=== PATIENT | male | born 1995 | race Hispanic/Latino ===

== ENCOUNTER 2018-07-18 03:05 | Emergency (ER) | payer BC, SELFPAY ==
[2018-07-18] MEDS ORDERED: Adacel (T-DAP) 0.5 ML VIAL ONE (03:54)
== END 2018-07-18 04:18 | disposition home or self-care (01) ==
LOC: ERS 03:05
DX: S01.112A Laceration without foreign body of left eyelid and periocular area, initial encounter (principal); Y00.XXXA Assault by blunt object, initial encounter
CPT/HCPCS: 12011; 90471; 90715